=== PATIENT | female | born 1975 | race African-American/Black ===

== ENCOUNTER 2016-11-05 11:17 | Emergency (ER) | payer MEDICAID, OTHER ==
[~2016-11-05] VITALS: Ht 165.1 cm; Wt 96.0 kg
[2016-11-05 11:19] VITALS: BP 136/79; PULSE 78; RESP 14; TEMP 98.4; O2SAT 97
--- NOTE | 2016-11-05 11:54 | PD ---
HPI Chief Complaint: Pain: Acute or Chronic Time Seen by Provider: 11:54 Travel History International Travel<30 days: No Contact w/Intl Traveler<30days: No Traveled to known affect area: No History of Present Illness HPI 41-year-old female presents to the emergency department for evaluation of right shoulder pain, upper back and neck pain. The patient states for the past month she has had some intermittent right shoulder soreness and pain aggravated with lifting her arm up. 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 States that she has been taking ibuprofen for the shoulder pain which has had some improvement. Patient states that this morning when she woke up she had pain in her upper back and neck as well that she describes as soreness. She denies any specific injury or trauma to her neck or back. She denies any fever, chills, nausea, vomiting, lightheadedness, dizziness, numbness or tingling, chest pain, shortness of breath, cough or cold symptoms. She is not taking anything for her symptoms so far. The patient is here because she is concerned that she cannot go to work and performed a manual tasks that she has to do with this soreness. No other complaints. PFSH Past Medical History Medical History: Denies Significant Hx Immunizations Current: Yes ?: Not Tubal Ligation: Yes Social History Alcohol Use: No Tobacco Use: No Substance Use: No Allergies-Medications (Allergen,Severity, Reaction): Coded Allergies: No Known Allergies (Unverified , 11/05/16) Reported Meds & Prescriptions Reported Meds & Active Scripts Active Naproxen 500 Mg Tab 500 Mg PO BID 7 Days Robaxin (Methocarbamol) 750 Mg Tab 750 Mg PO TID 5 Days Review of Systems Except as stated in HPI: all other systems reviewed are Neg Physical Exam Narrative GENERAL: Well-nourished and well-developed pleasant patient in no acute distress who is nontoxic appearing. SKIN: Warm and dry. HEAD: Normocephalic and atraumatic. EYES: No injection, drainage, or hyphema noted. PERRLA. EOMI. ENT: No nasal drainage noted. Oropharynx is clear. NECK: Supple and the trachea is midline. Mild trapezius muscle tenderness to palpation. No midline tenderness to palpation, no meningeal signs. CARDIOVASCULAR: Regular rate and rhythm. RESPIRATORY: Breath sounds are equal bilaterally with no accessory muscle use, wheezing, rhonchi, or crackles. MUSCULOSKELETAL: No obvious deformities, swelling, cyanosis, or ecchymosis is present throughout the upper and lower extremities. Patient has full range of motion without any signs of neurovascular compromise. Strength 5/5 upper and lower extremities equal bilaterally. BACK: Mild bilateral paraspinal muscle tenderness to palpation of the thoracic region. No obvious deformities, midline bony point tenderness, or crepitus noted throughout the thoracic and lumbar vertebrae. NEUROLOGICAL: Awake, alert, and oriented. Normal speech and gait. Cranial nerves are grossly intact. Data Data Last Documented VS Vital Signs Date Time Temp Pulse Resp B/P Pulse Ox O2 Delivery O2 Flow Rate FiO2 11/05/16 11:19 98.4 78 14 136/79 97 Room Air Orders Ketorolac Inj (Toradol Inj) (11/05/16 12:00) MDM Medical Decision Making Medical Screen Exam Complete: Yes Emergency Medical Condition: Yes Differential Diagnosis Muscle strain versus muscle spasm versus ligamentous injury versus discogenic pain Narrative Course 41-year-old female presents to the emergency department for evaluation of right shoulder pain as well as upper back and neck pain. Patient is afebrile, vital signs are stable. No traumatic injury to her shoulder, neck or back. 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 She has no midline bony point tenderness and therefore don' t feel that any imaging is indicated at this time. We'll treat the patient with Toradol 60 mg IM. We'll send her home with prescriptions for naproxen and Robaxin. Advised follow-up with her PCP. Patient verbalizes understanding is in agreement with treatment plan. Diagnosis Primary Impression: Muscle strain Additional Impression: Right shoulder strain Qualified Code: S46.911A - Right shoulder strain, initial encounter Patient Instructions: General Instructions, Muscle Strain (ED) Departure Forms: Tests/Procedures, Work Release Enter return to work date: Nov 07, 2016 Additional Instructions: Apply ice or heat to help alleviate symptoms. Take medications as prescribed with food and a full glass of water. Do not take Robaxin with alcohol or while driving. Follow-up with your Primary Care Physician. Return to the ED for any acute worsening of symptoms. Med/Other Pt SpecificInfo: Prescription(s) given Scripts Naproxen 500 Mg [id number] Mg PO BID 7 Days Ref 0 Prov:Miguel García MD 11/05/16 Methocarbamol (Robaxin)750 Mg [id number] Mg PO TID 5 Days Ref 0 Prov:Miguel García MD 11/05/16 Disposition: 01 DISCHARGE HOME Condition: Stable Delia Aguilar Nov 05, 2016 11:54 Delia Aguilar Nov 05, 2016 11:54
[2016-11-05] MEDS ORDERED: NAPR500T PO (11:59)
[2016-11-05] MEDS ORDERED: ROBA750T PO (11:59)
[2016-11-05] MEDS ORDERED: KETOROLAC TROMETHAMINE 60 MG/2 ML (IM) VIAL IM ONE (12:00)
== END 2016-11-05 12:42 | disposition home or self-care (01) ==
LOC: NEPB 11:17
DX: S46.911A Strain of unspecified muscle, fascia and tendon at shoulder and upper arm level, right arm, initial encounter (principal); S29.012A Strain of muscle and tendon of back wall of thorax, initial encounter; S16.1XXA Strain of muscle, fascia and tendon at neck level, initial encounter; X58.XXXA Exposure to other specified factors, initial encounter
CPT/HCPCS: 96372; 99283; J1885

== ENCOUNTER 2017-02-23 10:57 | Emergency (ER) | payer OTHER ==
[~2017-02-23] VITALS: Ht 165.1 cm; Wt 97.7 kg
[~2017-02-23 10:57] MED LIST: NAPR500T PO; ROBA750T PO
[2017-02-23 10:59] VITALS: BP 139/95; PULSE 72; RESP 20; TEMP 98.5; O2SAT 100
== END 2017-02-23 12:10 | disposition left against medical advice (07) ==
LOC: NEPK 10:57
DX: M25.511 Pain in right shoulder (principal); Z53.21 Procedure and treatment not carried out due to patient leaving prior to being seen by health care provider; X58.XXXA Exposure to other specified factors, initial encounter; Y99.0 Civilian activity done for income or pay
CPT/HCPCS: 99282